=== PATIENT | female | born 2000 | race Caucasian/White ===

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

== ENCOUNTER 2021-10-14 20:07 | Emergency (ER) | payer MEDICAID ==
[~2021-10-14 20:07] MED LIST changes: +PHEN-824 PO
== END 2021-10-14 21:47 | disposition left against medical advice (07) ==
LOC: ER 20:08
DX: R10.9 Unspecified abdominal pain (principal); Z53.21 Procedure and treatment not carried out due to patient leaving prior to being seen by health care provider